=== PATIENT | male | born 1990 | race Caucasian/White ===

== ENCOUNTER 2018-01-27 18:17 | Emergency (ER) | payer OTHER ==
[2018-01-27 18:26] VITALS: BP 147/80; PULSE 80; TEMP 98.2
--- NOTE | 2018-01-27 18:58 | PDOC ---
History of Present Illness - General Chief Complaint: Chest Pain Stated Complaint: CHEST PAIN Time Seen by Provider: 01/27/18 18:39 History Source: Patient Exam Limitations: No Limitations - History of Present Illness Initial Comments: CHIEF COMPLAINT: 27 y/o afebrile male with PMH asthma c/o intermittent sharp left sided chest pain x 1 week. HISTORY OF PRESENT ILLNESS: The patient states he noticed the pain after playing soccer 1 week ago. He denies fever, cough, hemoptysis, n/v/d, recent travel, smoking history, recent surgeries. He has not taken any OTC medication for pain. Vital signs on arrival are within normal limits. REVIEW OF SYSTEMS: GENERAL/CONSTITUTIONAL: No fever/chills. No weakness. No weight change. HEAD, EYES, EARS, NOSE AND THROAT: No change in vision. No ear pain or discharge. No sore throat. CARDIOVASCULAR: +chest pain. No shortness of breath. RESPIRATORY: No cough, wheezing, or hemoptysis. GASTROINTESTINAL: No abd pain, nausea, vomiting, diarrhea. GENITOURINARY: No dysuria, frequency, or change in urination. MUSCULOSKELETAL: No joint or muscle swelling or pain. No neck or back pain. SKIN: No rash or easy bruising. NEUROLOGIC: No headache, vertigo, loss of consciousness, or loss of sensation. PHYSICAL EXAM: GENERAL: The patient is awake, alert, and fully oriented, in no acute distress. He is very well appearing, ambulatory, in NAD or obvious discomfort. HEAD: Normal with no signs of trauma. ENT: Pupils equal, round and reactive to light, extraocular movements intact, sclera anicteric, conjunctiva clear. Neck supple. LUNGS: Clear to auscultation bilaterally. Normal excursion. No respiratory distress or use of accessory muscles. CV: RRR, S1/S2, no MRG. Cap refill < 2 sec. CHEST WALL: Reproducible pain with palpation of left anterior chest from T2- T4. No deformities. No flail chest. ABDOMEN: Soft, non-distended, non-tender even to deep palpation, no hepatomegaly or splenomegaly, no masses. EXTREMITIES: Normal range of motion, no edema. NEUROLOGICAL: Normal speech, normal gait. CN II-XII grossly intact. PSYCH: Normal mood, normal affect. SKIN: Warm, dry, normal turgor, no rashes or lesions noted. Past History - Past Medical History Allergies/Adverse Reactions: Allergies Allergy/AdvReac Type Severity Reaction Status Date / Time No Known Allergies Allergy Verified 01/27/18 18:21 Home Medications: Ambulatory Orders Prednisone [Deltasone] 20 mg PO ASDIR 01/27/18 Asthma: Yes COPD: No - Immunization History Immunization Up to Date: Yes - Suicide/Smoking/Psychosocial Hx Smoking History: Never smoked Have you smoked in the past 12 months: No Information on smoking cessation initiated: No Hx Alcohol Use: No Drug/Substance Use Hx: No *Physical Exam - Vital Signs Last Vital Signs Temp Pulse Resp BP Pulse Ox 98.2 F 80 16 147/80 99 01/27/18 18:21 01/27/18 18:21 01/27/18 18:21 01/27/18 18:21 01/27/18 18:21 Heart Score/ECG Review - ECG Intrepretation Comment:: Twelve-lead EKG was performed and reviewed by Dr. Simmons. There is normal sinus rhythm with a normal rate. The axis is normal. The intervals are normal. There are no ST or T wave abnormalities. Impression: Normal twelve-lead EKG ED Treatment Course - Medications Given in the ED: ED Medications Discontinued Medications Generic Name Dose Route Start Last Admin Trade Name Freq PRN Reason Stop Dose Admin Al Hydroxide/Mg Hydroxide 30 ml 01/27/18 19:56 01/27/18 20:18 Mylanta Oral Suspension - PO 01/27/18 19:57 30 ml ONCE ONE Administration Ketorolac Tromethamine 60 mg 01/27/18 19:09 01/27/18 19:21 Toradol Injection - IM 01/27/18 19:10 60 mg ONCE ONE Administration Ranitidine HCl 300 mg 01/27/18 19:56 01/27/18 20:18 Zantac - PO 01/27/18 19:57 300 mg ONCE ONE Administration Medical Decision Making - Medical Decision Making A/P: 27 y/o male with reproducible chest wall pain x 1 week. EKG in triage was normal. Plan is to give IM toradol and reassess. Patient is not hypoxic or tachycardic. Patient now states the chest pain has improved but he has pain in his epigastric region. Will give zantac and maalox. The patient now informs me that his chest pain has been going on for the past 4- 6weeks. He has been seen by a windows systems engineer at [facility], [place] who did a CT scan of his brain, stress test, EKG, CXR, labs, all of which were normal. The patient states he had a repeat EKG and labs done 1 week ago and they were also normal. He admits he's had about 5 EKGs in the past 4 weeks, all of which were normal. I suggested the patient be transferred to the main ER for repeat blood work and CXR but the patient refuses. He states he would prefer to just follow up with his Felling Machine Operator. I instructed him to return to the ER immediately with any worsening or concerning symptoms. The patient verbalizes understanding of all instructions, has no further questions and is awaiting discharge. *DC/Admit/Observation/Transfer Diagnosis at time of Disposition: Atypical chest pain - Discharge Dispostion Disposition: HOME Condition at time of disposition: Improved - Referrals - Patient Instructions Printed Discharge Instructions: DI for Atypical Chest Pain, How To Perform RICE (Rest, Ice, Compress, Elevate) Additional Instructions: Discharge Instructions: -Apply ice to affected area to help with pain. -Take 81mg of Aspirin daily -Follow up with your Felling Machine Operator as soon as possible -Return to the ER immediately with any worsening or concerning symptoms - Post Discharge Activity
[2018-01-27] MEDS ORDERED: KETOROLAC TROMETHAMINE 60 MG/2 ML VIAL IM ONE (19:09)
[2018-01-27] MEDS ORDERED: KETOROLAC TROMETHAMINE 60 MG/2 ML VIAL ONE (19:14)
[2018-01-27] MEDS ORDERED: RANITIDINE HCL 150 MG TABLET (FP) PO ONE (19:56)
[2018-01-27] MEDS ORDERED: MAG HYDROX/AL HYDROX/SIMETH 30 ML UNIT-DOSE CUP PO ONE (19:56)
[2018-01-27] MEDS ORDERED: MAG HYDROX/AL HYDROX/SIMETH 30 ML UNIT-DOSE CUP ONE (20:07)
[2018-01-27] MEDS ORDERED: RANITIDINE HCL 150 MG TABLET (FP) ONE (20:07)
--- NOTE | 2018-01-29 12:27 | EKG ---
Test Reason : Blood Pressure : / mmHG Vent. Rate : 072 BPM Atrial Rate : 072 BPM P-R Int : 152 ms QRS Dur : 086 ms QT Int : 352 ms P-R-T Axes : 070 052 058 degrees QTc Int : 385 ms POOR DATA QUALITY, INTERPRETATION MAY BE ADVERSELY AFFECTED NORMAL SINUS RHYTHM NORMAL ECG NO PREVIOUS ECGS AVAILABLE Confirmed by CORWIN HICKMAN MD ([id number]) on 01/29/2018 12:27:02 PM Referred By: Confirmed By:CORWIN HICKMAN MD
== END 2018-01-27 20:54 | disposition home or self-care (01) ==
LOC: JERFT 18:17
PROC: 3E0233Z Introduction of Anti-inflammatory into Muscle, Percutaneous Approach (ICD-10-PCS; principal; 2018-01-27)
DX: R07.89 Other chest pain (principal)
CPT/HCPCS: 93005; 93010; 99281-25